=== PATIENT | male | born 1995 | race Caucasian/White ===

== ENCOUNTER 2023-03-29 01:41 | Emergency (ER) | payer MEDICAID ==
[2023-03-29] MEDS ORDERED: traZODone 50 MG Tab PO ONE (02:29)
== END 2023-03-29 03:24 | disposition home or self-care (01) ==
LOC: JP.ED 01:41
DX: G47.00 Insomnia, unspecified (principal); F17.210 Nicotine dependence, cigarettes, uncomplicated
CPT/HCPCS: 99283; A9270

== ENCOUNTER 2023-04-09 01:06 | Emergency (ER) | payer MEDICAID | END 2023-04-09 03:10 | LOC: JP.ED 01:06 | DX: F19.10 Other psychoactive substance abuse, uncomplicated (principal) | CPT/HCPCS: 99285 ==